=== PATIENT | male | born 1955 | race Caucasian/White ===

== ENCOUNTER 2018-04-11 10:41 | Outpatient (CLI) | payer OTHER, SELFPAY ==
[2018-04-11 12:23] LABS: Abs Immature Grans 0.02 k/cumm (0.0-0.09); Absolute Basophil Count 0.06 k/cumm (0.0-0.2); Absolute Eosinophil Count 0.54 k/cumm (0.0-0.7); Absolute Lymphocyte Count 1.86 k/cumm (1.2-3.4); Basophils % 0.5; Eosinophils % 4.9; HCT 47.7 % (40.0-50.0); HGB 15.9 g/dL (13.5-17.5); Immature Grans % 0.2; Lymphocytes % 16.8; Mean Corp. HGB Concentration 33.3 g/dL (32.0-36.0); Mean Corpuscular Hemoglobin 31.2 pg (27.0-33.0); Mean Corpuscular Volume 93.5 fL (80-95); Mean Platelet Volume 10.2 fL (8.0-11.0); Monocytes % 17.6; Platelet Count 321 x1000/uL (130-400); RBC Distribution Width 13.3 % (11.8-14.1); White Blood Cell Count 11.05 k/cumm (4.4-10.8)
[2018-04-11 12:27] LABS: Absolute Monocyte Count 1.94 k/cumm (0.11-0.7); Absolute Neutrophil Count 6.63 k/cumm (1.2-6.7)
[2018-04-11 12:33] LABS: Bilirubin Negative (Negative); Blood Moderate (Negative); Clarity Clear; Glucose Negative (Negative); Ketones Negative (Negative); Leukocyte Esterase Negative (Negative); Nitrite Negative (Negative); Specific Gravity 1.015 (1.005-1.025); Urobilinogen 0.2 EU/dL (Up TO 0.2)
[2018-04-11 12:36] LABS: Diff Comment Diff Reviewed; RBC Morphology Normal
[2018-04-11 12:44] LABS: Bacteria Negative HPF (Negative); Casts 0-2 Hyaline LPF (Negative); Crystals Negative HPF (Negative); Epithelial Cells Rare HPF (Negative); Mucus Trace (Negative); WBC 0-2 HPF (0-5)
[2018-04-11 12:45] LABS: C & S Indicated? No
[2018-04-11 13:27] LABS: ALT 22 U/L (12-78); AST 17 U/L (15-37); Albumin 3.9 g/dL (3.4-5.0); Alkaline Phosphatase 104 U/L (46-116); Anion Gap 11.6 mmol/L (3-11); BUN 17 mg/dL (7-18); Bilirubin, Total 0.3 mg/dL (0.2-1.0); CO2 29.4 mmol/L (21.0-32.0); CREATININE 0.97 mg/dL (0.70-1.30); Calcium 9.8 mg/dL (8.5-10.1); Chloride 104 mmol/L (98-107); FREE T4 1.56 ng/dL (0.76-1.46); Glucose 109 mg/dL (70-100); Potassium 3.7 mmol/L (3.5-5.1); Sodium 145 mmol/L (136-145); Total Protein 7.2 g/dL (6.4-8.2)
[2018-04-13 13:57] LABS: Free PSA/PSA Ratio 0.15 ratio
[2018-04-15 17:11] LABS: Testosterone, Free 5.57 ng/dL (3.67-13.9); Testosterone, Total 398 ng/dL (240-950)
== END 2018-04-11 11:01 ==
PROVIDERS: PCP Family Medicine; Visit Provider Family Medicine
DX: Z00.00 Encounter for general adult medical examination without abnormal findings (principal); D49.7 Neoplasm of unspecified behavior of endocrine glands and other parts of nervous system; R31.29 Other microscopic hematuria; R53.83 Other fatigue
CPT/HCPCS: 36415; 80053; 84402; 84403; 81003; 81015; 84154; 84439; 85025

== ENCOUNTER 2018-05-20 09:02 | Outpatient (CLI) | payer OTHER, SELFPAY ==
--- NOTE | 2018-05-20 08:52 | DI.RAD_ITS ---
SYMPTOMS/DIAGNOSIS: PAIN RIGHT KNEE: Four views of the right knee were obtained with Merchant view of the left knee included as well. There may be slight narrowing of the lateral and medial tibiofemoral cartilaginous joint spaces, presumably on a degenerative basis. No significant focal bony abnormality seen. There does appear to be a small knee joint effusion.
== END 2018-05-20 09:22 ==
PROVIDERS: PCP Family Medicine; Visit Provider Physician Assistant Surgical
DX: M25.561 Pain in right knee (principal)
CPT/HCPCS: 73564

== ENCOUNTER 2018-05-29 00:26 | Outpatient (CLI) | payer OTHER, SELFPAY ==
--- NOTE | 2018-05-29 15:30 | DI.MRI_ITS ---
SYMPTOM/DIAGNOSIS: RT KNEE PAIN, LOCKING, M23.91, INTERNAL DERANGEMENT RIGHT KNEE MRI: MRI examination of the knee was performed according to the usual protocol. There is marked articular cartilage loss of the components of the lateral tibiofemoral joint and to a lesser degree the medial tibiofemoral joint. Mild subchondral signal abnormality is noted associated with the lateral tibiofemoral joint. The patellofemoral cartilage appears fairly well maintained. No significant abnormality of the extensor mechanism. Cruciate ligaments appear intact. The lateral meniscus is markedly deficient consistent with a chronic tear. Medial meniscus is also abnormal with a tear of the body and posterior horn. No significant collateral ligament injury is seen. CONCLUSION: Marked DJD, most prominent involving lateral tibiofemoral joint. Lateral and medial meniscal tears.
== END 2018-05-29 00:46 ==
PROVIDERS: PCP Family Medicine; Visit Provider Student in an Organized Health Care Education/Training Program
DX: M25.561 Pain in right knee (principal); M23.91 Unspecified internal derangement of right knee; M17.11 Unilateral primary osteoarthritis, right knee; S83.281A Other tear of lateral meniscus, current injury, right knee, initial encounter; S83.241A Other tear of medial meniscus, current injury, right knee, initial encounter
CPT/HCPCS: 73721

== ENCOUNTER 2018-08-09 07:58 | Outpatient (CLI) | payer OTHER, SELFPAY ==
[2018-08-09 09:52] LABS: TSH (W/Ref FT4) 0.01 uIU/mL (0.358-3.74)
[2018-08-09 10:30] LABS: FREE T4 1.37 ng/dL (0.76-1.46)
== END 2018-08-09 08:18 ==
PROVIDERS: PCP Family Medicine; Visit Provider Family Medicine
DX: E03.9 Hypothyroidism, unspecified (principal)
CPT/HCPCS: 36415; 84439; 84443

== ENCOUNTER 2019-11-14 02:48 | Outpatient (CLI) | payer MEDICARE, SELFPAY ==
[2019-11-14 12:27] LABS: HCT 49.3 % (40.0-50.0); HGB 16.5 g/dL (13.5-17.5); MCH 31.3 pg (27.0-33.0); MCHC 33.5 % (32.0-36.0); MCV 93.4 fL (80-95); MPV 9.3 fL (8.0-11.0); Platelet Count 360 10^3/uL (130-400); RBC 5.28 10^6/uL (4.36-5.78); RDW 13.3 % (11.8-14.1); RDW-SD 45.6 fL; WBC 11.18 10^3/uL (4.4-10.8)
[2019-11-14 13:42] LABS: FREE T4 1.21 ng/dL (0.76-1.46)
[2019-11-14 22:31] LABS: PSA, Diagnostic 4.7 ng/mL (0.0-4.5)
[2019-11-19 17:11] LABS: Testosterone, Free 10.4 ng/dL (3.47-13.0); Testosterone, Total 743 ng/dL (240-950)
== END 2019-11-14 03:08 ==
PROVIDERS: PCP Family Medicine; Visit Provider Family Medicine
DX: E03.9 Hypothyroidism, unspecified (principal); E23.7 Disorder of pituitary gland, unspecified; Z85.46 Personal history of malignant neoplasm of prostate
CPT/HCPCS: 36415; 84402; 84403; 85027; 84153; 84439

== ENCOUNTER 2021-11-15 03:24 | Outpatient (CLI) | payer MEDICARE, SELFPAY ==
[2021-11-15 12:24] LABS: HCT 46.8 % (40.0-50.0); HGB 15.9 g/dL (13.5-17.5); MCH 31.7 pg (27.0-33.0); MCV 93 fL (80-95); MPV 9.7 fL (8.0-11.0); Platelet Count 419 10^3/uL (130-400); RBC 5.02 10^6/uL (4.36-5.78); RDW 13.2 % (11.8-14.1); RDW-SD 45.2 fL; WBC 12.37 10^3/uL (4.4-10.8)
[2021-11-15 12:55] LABS: ALT 22 U/L (16-63); AST 16 U/L (15-37); Albumin 4.1 g/dL (3.4-5.0); Alkaline Phosphatase 83 U/L (46-116); Anion Gap 7.8 mmol/L (3-11); BUN 12 mg/dL (7-18); Bilirubin, Total 0.4 mg/dL (0.2-1.0); CO2 30.2 mmol/L (21.0-32.0); Calcium 9.9 mg/dL (8.5-10.1); Chloride 100 mmol/L (98-107); Estimated GFR 82.49 (mL/min/1.73m2); Glucose 90 mg/dL (74-106); Potassium 3.8 mmol/L (3.5-5.1); Sodium 138 mmol/L (136-145); Total Protein 7.8 g/dL (6.4-8.2)
[2021-11-15 23:02] LABS: PSA, Diagnostic 6.9 ng/mL (<=4.5)
== END 2021-11-15 03:25 | disposition home or self-care (01) ==
LOC: LOS 03:25
PROVIDERS: PCP Family Medicine; Visit Provider Family Medicine
DX: E03.9 Hypothyroidism, unspecified (principal); E23.7 Disorder of pituitary gland, unspecified; D49.7 Neoplasm of unspecified behavior of endocrine glands and other parts of nervous system; Z85.46 Personal history of malignant neoplasm of prostate
CPT/HCPCS: 36415; 80053; 85027; 84153; 84439